=== PATIENT | male | born 1945 | race Caucasian/White ===

== ENCOUNTER 2016-09-05 14:05 | Day surgery (SDC) | payer MEDICARE ==
[2016-09-05] MEDS ORDERED: LOSA50TA PO (14:30)
[2016-09-05 14:32] VITALS: BP 149/85; PULSE 68; RESP 18; TEMP 98.3; O2SAT 97
--- NOTE | 2016-09-05 15:52 | PD.RAD ---
Radiology Post PICC Prog Note Pre Procedure Diagnosis: (1) Tonsil cancer Post Procedure Diagnosis: (1) Tonsil cancer Procedure: Right PICC line placement Procedure Date: Sep 05, 2016 Supervising Radiologist Nicolas Ledesma JR Proceduralist/Assist: Dilia Celestin RT(R)() Device Side: Right Arabic: 4 single lumen cm: 44 Catheter: Power PICC Plan of Activity Patient to Unit: ROPU Patient Condition: Good PICC line can be used immediately Jr. Baltazar,Nicolas Smith MD Sep 05, 2016 15:52
[2016-09-05 15:56] VITALS: BP 142/85; PULSE 67; RESP 20; O2SAT 95
[2016-09-05] MEDS ORDERED: SODIUM CHLORIDE 0.9% FLUSH 10 ML FLUSH IVF PRN ×2 (16:00)
--- NOTE | 2016-09-05 16:34 | RADRPT ---
EXAM DATE/TIME: 09/05/2016 15:36 [facility] COMPARISON: No previous studies available for comparison. INDICATIONS : Patient with left tonsilar cancer in need of PICC line placement. MEDICAL HISTORY : Acromegaly, Arthritis, HLD, HTN, Left oropharyngeal mass and left neck mass SURGICAL HISTORY : Colonoscopy, Left knee surgery, Transphenoidal pituitary surgery, Left tonsil biopsy ENCOUNTER: Initial ACUITY: 1 month PAIN SCORE: 0/10 FLUORO TIME: 0.55 minutes IMAGE SERIES: 1 ACCESS: Right basilic vein MEDICATION(S): 1.) 200 units Heparin IV DEVICE(S): 1.) 4 Monegasque single lumen 44 cm Xcela Power PICC PROCEDURE : 1. Ultrasound guidance for venous catheterization. 2. Fluoroscopic guidance. 3. Ultrasound & fluoroscopic guided central venous Power PICC line placement. The risks, benefits and alternatives to the procedure were explained and verbal and written consent w as obtained. The site was prepped in sterile fashion. Full sterile technique was used, including ca p, mask, sterile gloves and gown and a large sterile sheet. Hand hygiene and 2% chlorhexidine prep w as utilized per protocol for cutaneous antisepsis with appropriate dry time for site. The skin and s ubcutaneous tissues were infiltrated with local anesthetic solution. Under direct ultrasound guidance, a suitable vein was accessed and a measuring guidewire was introduc ed and positioned in the central venous system. The ultrasound images depicting access guidance were saved and stored to PACS for permanent record. A Power Injectable PICC line was cut to prescribed length and introduced, positioned with tip at the cavoatrial junction level. The line was flushed and secured per protocol. CONCLUSION: 1. Uncomplicated central venous Power PICC line placement. 2. The PICC line can be used immediately. Nicolas Ledesma Jr., MD on September 05, 2016 at 16:32 Board Certified Radiologist. This report was verified electronically.
[2016-09-06] MEDS ORDERED: SODIUM CHLORIDE 0.9% FLUSH 10 ML FLUSH IVF SCH (09:00)
== END 2016-09-05 16:05 | disposition home or self-care (01) ==
LOC: HROP 14:05 → HRIP 14:08 → HROP 16:05
PROVIDERS: ATTEND Internal Medicine Hematology & Oncology
DX: Z45.2 Encounter for adjustment and management of vascular access device (principal); C09.8 Malignant neoplasm of overlapping sites of tonsil; I10 Essential (primary) hypertension; E78.5 Hyperlipidemia, unspecified
CPT/HCPCS: 36569; 76937; 77001; C1751; J1642

== ENCOUNTER 2016-10-26 11:03 | Inpatient (IN) | payer MEDICARE, MEDICAID ==
[~2016-10-26] VITALS: Ht 181.6 cm; Wt 91.0 kg
[~2016-10-26 11:03] MED LIST: LOSA50TA PO
[2016-10-26 11:05] VITALS: BP 152/80; PULSE 74; RESP 24; TEMP 98.5; O2SAT 100
[2016-10-26] MEDS ORDERED: ONDANSETRON HCL 4 MG/2 ML VIAL IV PUSH ONE (11:30)
[2016-10-26] MEDS ORDERED: SODIUM CHLOR 0.9% 1000 ML INJ 1,000 ML IV ONE (11:30)
[2016-10-26] MEDS ORDERED: MORPHINE SULFATE 4 MG/ML INJ IV PUSH ONE (11:30)
--- NOTE | 2016-10-26 11:41 | PD ---
Physical Exam Narrative Patient was seen and examined with my assistant construction superintendent. Data Data Last Documented VS Vital Signs Date Time Temp Pulse Resp B/P Pulse Ox O2 Delivery O2 Flow Rate FiO2 10/26/16: 75 99 Room Air 10/26/16 11:05 98.5 24 152/80 Orders Electrocardiogram (10/26/16 11:29) Complete Blood Count With Diff (10/26/16 11:29) Comprehensive Metabolic Panel (10/26/16 11:29) Prothrombin Time / Inr (Pt) (10/26/16 11:29) Act Partial Throm Time (Ptt) (10/26/16 11:29) Lactic Acid Sepsis Protocol (10/26/16 11:29) Magnesium (Mg) (10/26/16 11:29) Ckmb (Isoenzyme) Profile (10/26/16 11:29) Troponin I (10/26/16 11:29) Urinalysis - C+S If Indicated (10/26/16 11:29) Blood Culture (10/26/16 11:29) Chest, Single Ap (10/26/16 11:29) Ecg Monitoring (10/26/16 11:29) Iv Access Insert/Monitor (10/26/16 11:29) Oxygen Administration (10/26/16 11:29) Sodium Chlor 0.9% 1000 Ml Inj (Ns 1000 M (10/26/16 11:30) Ondansetron Inj (Zofran Inj) (10/26/16 11:30) Morphine Inj (Morphine Inj) (10/26/16 11:30) MDM Supervised Visit with PENNIE: Yes Ant Schaefer MD October 26, 2016 11:41
--- NOTE | 2016-10-26 11:46 | PD ---
HPI Chief Complaint: General Weakness Time Seen by Provider: 11:25 Travel History International Travel<30 days: No Contact w/Intl Traveler<30days: No Traveled to known affect area: No History of Present Illness HPI Patient comes in complaining of generalized weakness since finishing radiation therapy 2 days ago. Patient has not been eating or drinking much. Patient states that he is vomiting. Denies any blood in vomit. Patient states his stool today was white. Denies any other change in his bowels. Patient reports his urine has been cloudy. States he just feels weak all over. Denies any fevers, chest pain, or abdominal pain. Patient reports he's been coughing. Denies any headaches. He reports his throat is been hurting him. Patient reports he finished chemotherapy week ago and has one more radiation treatment scheduled for tomorrow. The patient's oncologist is Dr. Arias and Dr. Brown is his radiology oncologist. Primary care doctor is Dr. Lockett. 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) High Cholesterol: Yes Chemotherapy: Yes Diminished Hearing: No Hypertension: Yes Tetanus Vaccination: < 5 Years Influenza Vaccination: No Social History Alcohol Use: No Tobacco Use: No Substance Use: No Allergies-Medications (Allergen,Severity, Reaction): Coded Allergies: Ibuprofen (Verified Allergy, Unknown, Anaphylaxis, 10/26/16) Reported Meds & Prescriptions Reported Meds & Active Scripts Active Reported Losartan (Losartan Potassium) 50 Mg Tab 50 Mg PO BID PRN Review of Systems Except as stated in HPI: all other systems reviewed are Neg Physical Exam Narrative GENERAL: Well-developed, well nourished, in no acute distress, and non-ill appearing. SKIN: Focused skin assessment warm and dry. HEAD: Atraumatic. Normocephalic. EYES: Pupils equal and round. EOMI. No scleral icterus. No injection or drainage. ENT: No nasal bleeding or discharge. Mucous membranes pink and moist. NECK: Trachea midline. No JVD. Supple. No nuclear rigidity. CARDIOVASCULAR: Regular rate and rhythm. No murmur appreciated. RESPIRATORY: No accessory muscle use. No respiratory distress. Clear to auscultation. Breath sounds equal bilaterally. GASTROINTESTINAL: Abdomen soft, non-tender, nondistended. Hepatic and splenic margins not palpable. Normal bowel sounds 4. No pulsatile mass. MUSCULOSKELETAL: No obvious deformities. No clubbing. No cyanosis. No edema. Full range of motion. NEUROLOGICAL: Awake and alert. No obvious cranial nerve deficits. Motor grossly within normal limits. Normal speech. PSYCHIATRIC: Appropriate mood and affect; insight and judgment normal. Data Data Last Documented VS Vital Signs Date Time Temp Pulse Resp B/P Pulse Ox O2 Delivery O2 Flow Rate FiO2 10/26/16 12:34 76 16 131/79 99 Room Air 10/26/16 11:05 98.5 Orders Electrocardiogram (10/26/16 11:29) Complete Blood Count With Diff (10/26/16 11:29) Comprehensive Metabolic Panel (10/26/16 11:29) Prothrombin Time / Inr (Pt) (10/26/16 11:29) Act Partial Throm Time (Ptt) (10/26/16 11:29) Lactic Acid Sepsis Protocol (10/26/16 11:29) Magnesium (Mg) (10/26/16 11:29) Ckmb (Isoenzyme) Profile (10/26/16 11:29) Troponin I (10/26/16 11:29) Urinalysis - C+S If Indicated (10/26/16 11:29) Blood Culture (10/26/16 11:29) Chest, Single Ap (10/26/16 11:29) Ecg Monitoring (10/26/16 11:29) Iv Access Insert/Monitor (10/26/16 11:29) Oxygen Administration (10/26/16 11:29) Sodium Chlor 0.9% 1000 Ml Inj (Ns 1000 M (10/26/16 11:30) Ondansetron Inj (Zofran Inj) (10/26/16 11:30) Morphine Inj (Morphine Inj) (10/26/16 11:30) Urine Culture (10/26/16 12:05) Admit Order (Ed Use Only) (10/26/16 14:10) Labs Laboratory Tests Test 10/26/16 10/26/16 10/26/16 11:25 11:35 12:05 Sodium Level 132 MEQ/L Potassium Level 4.0 MEQ/L Chloride Level 96 MEQ/L Carbon Dioxide Level 26.5 MEQ/L Anion Gap 10 MEQ/L Blood Urea Nitrogen 15 MG/DL Creatinine 0.94 MG/DL Estimat Glomerular Filtration 80 ML/MIN Rate Random Glucose 99 MG/DL Calcium Level 9.1 MG/DL Magnesium Level 1.7 MG/DL Total Bilirubin 0.7 MG/DL Aspartate Amino Transf 19 U/L (AST/SGOT) Alanine Aminotransferase 22 U/L (ALT/SGPT) Alkaline Phosphatase 78 U/L Total Creatine Kinase 32 U/L Troponin I LESS THAN 0.02 NG/ML Total Protein 7.2 GM/DL Albumin 3.7 GM/DL White Blood Count 5.2 TH/MM3 Red Blood Count 3.76 MIL/MM3 Hemoglobin 12.1 GM/DL Hematocrit 34.8 % Mean Corpuscular Volume 92.5 FL Mean Corpuscular Hemoglobin 32.3 PG Mean Corpuscular Hemoglobin 34.9 % Concent Red Cell Distribution Width 13.9 % Platelet Count 190 TH/MM3 Mean Platelet Volume 6.9 FL Neutrophils (%) (Auto) 78.3 % Lymphocytes (%) (Auto) 9.3 % Monocytes (%) (Auto) 11.6 % Eosinophils (%) (Auto) 0.4 % Basophils (%) (Auto) 0.4 % Neutrophils # (Auto) 4.1 TH/MM3 Lymphocytes # (Auto) 0.5 TH/MM3 Monocytes # (Auto) 0.6 TH/MM3 Eosinophils # (Auto) 0.0 TH/MM3 Basophils # (Auto) 0.0 TH/MM3 CBC Comment DIFF FINAL Differential Comment Prothrombin Time 10.7 SEC Prothromb Time International 1.0 RATIO Ratio Activated Partial 26.9 SEC Thromboplast Time Lactic Acid Level 1.5 mmol/L Urine Color YELLOW Urine Turbidity CLEAR Urine pH 6.0 Urine Specific [place] 1.007 Urine Protein NEG mg/dL Urine Glucose (UA) NEG mg/dL Urine Ketones 10 mg/dL Urine Occult Blood NEG Urine Nitrite NEG Urine Bilirubin NEG Urine Urobilinogen LESS THAN 2.0 MG/DL Urine Leukocyte Esterase NEG Urine RBC 1 /hpf Urine WBC 2 /hpf Urine Bacteria OCC /hpf Urine Mucus FEW /lpf Microscopic Urinalysis Comment CATH-CULTURE IND MDM Medical Decision Making Medical Screen Exam Complete: Yes Emergency Medical Condition: Yes Medical Record Reviewed: Yes Interpretation(s) EKG reviewed by Dr. Schaefer shows sinus rhythm with ventricular 65. No STEMI. Differential Diagnosis Dehydration, sepsis, pneumonia, UTI, arrhythmia, other Narrative Course Patient's records reviewed. Shows patient was noted to have a PEG tube placed for nourishment and made by Dr. Brown, however patient refused at that time secondary to cost. Dr. Schaefer discussed this with the patient today and is agreeable have PEG tube placed. 1330 patient reassess and reports is feeling much better after IV hydration. Discussed all findings and plan of care with patient was agreeable for admission. All questions were answered. CBC is pending currently. Patient remained stable throughout ER course. Physician Communication Physician Communication [address] Alcocer, who is agreeable to admit the patient. Diagnosis Primary Impression: Dysphagia Qualified Code: R13.10 - Dysphagia, unspecified type Additional Impressions: Malnutrition Dehydration Tonsil cancer Admitting Information Admitting Physician Requests: Observation Condition: Stable Monty Davis October 26, 2016 11:46
[2016-10-26 12:00] LABS: APTT (PATIENT) 26.9 SEC (24.3-30.1); PROTHROMBIN TIME - PATIENT 10.7 SEC (9.8-11.6)
[2016-10-26 12:13] LABS: ALT (GPT) 22 U/L (12-78); ANION GAP 10 MEQ/L (5-15); AST (GOT) 19 U/L (15-37); BICARBONATE 26.5 MEQ/L (21.0-32.0); BLOOD UREA NITROGEN 15 MG/DL (7-18); CHLORIDE 96 MEQ/L (98-107); GLOMERULAR FILTRATION RATE 80 ML/MIN (>89); MAGNESIUM 1.7 MG/DL (1.5-2.5); SODIUM (NA) 132 MEQ/L (136-145)
[2016-10-26 12:16] LABS: ALKALINE PHOSPHATASE 78 U/L (45-117); TOTAL BILIRUBIN ADULT 0.7 MG/DL (0.2-1.0)
--- NOTE | 2016-10-26 12:17 | RADRPT ---
EXAM DATE/TIME: 10/26/2016 11:36 [facility] COMPARISON: No previous studies available for comparison. INDICATIONS : Vomiting. MEDICAL HISTORY : Carcinoma, tonsillar. SURGICAL HISTORY : None. ENCOUNTER: Initial ACUITY: 1 day PAIN SCORE: 0/10 LOCATION: Bilateral chest FINDINGS: A single view of the chest demonstrates the lungs to be symmetrically aerated without evidence of mas s, infiltrate or effusion. The cardiomediastinal contours are unremarkable. Osseous structures are intact. CONCLUSION: No acute disease. Valentin Becfkord MD on October 26, 2016 at 12:16 Board Certified Radiologist. This report was verified electronically.
[2016-10-26 12:26] LABS: CREATINE KINASE 32 U/L (39-308)
[2016-10-26 12:34] VITALS: BP 131/79; PULSE 76; RESP 16; O2SAT 99
[2016-10-26 13:23] LABS: BACTERIA, URINE OCC /hpf; BLOOD, URINE NEG (NEG); GLUCOSE,URINE NEG (NEG); KETONE, URINE 10 mg/dL (NEG); MUCUS URINE FEW /lpf (OCC); NITRITE,URINE NEG (NEG); URINE COLOR YELLOW (YELLW/STRAW)
[2016-10-26 13:24] LABS: COMMENT (UR) CATH-CULTURE IND; CULTURE IF INDICATED CATH CULTURE IND
[2016-10-26 13:54] LABS: AUTOMATED NEUTROPHIL # 4.1 TH/MM3 (1.8-7.7); BASOPHIL % 0.4 % (0.0-2.0); EOSINOPHIL % 0.4 % (0.0-4.0); HEMATOCRIT 34.8 % (39.0-51.0); HEMO FLAGS DIFF FINAL; LYMPH % 9.3 % (9.0-44.0); LYMPHOCYTE # 0.5 TH/MM3 (1.0-4.8); MEAN CELL VOLUME 92.5 FL (80.0-100.0); MEAN CORPUSCULAR HEMOGLOBIN 32.3 PG (27.0-34.0); MEAN CORPUSCULAR HGB CONC 34.9 % (32.0-36.0); MONO % 11.6 % (0.0-8.0); NEUT % 78.3 % (16.0-70.0); PLATELET COUNT 190 TH/MM3 (150-450); RED BLOOD COUNT 3.76 MIL/MM3 (4.50-5.90); RED CELL DISTRIBUTION WIDTH 13.9 % (11.6-17.2); WHITE BLOOD COUNT 5.2 TH/MM3 (4.0-11.0)
--- NOTE | 2016-10-26 14:25 | HHI.HP ---
HPI Service [facility] Primary Care Physician Non-Staff Admission Diagnosis dysphagia, malnutrition, dehydration Diagnoses: Chief Complaint: painful swallowing, weak, (Marcy Molina) Travel History International Travel<30 Days: No Contact w/Intl Traveler <30 Da: No Traveled to Known Affected Are: No (Marcy Molina) History of Present Illness This a pleasant 71-year-old male recently diagnosed with left tonsillar squamous cell carcinoma, currently undergoing concurrent radiation and weekly cisplatin chemotherapy. Patient states that he finished the chemotherapy last week and he is due to finish his last radiation treatment tomorrow. His oncologist is Dr. Arias and radiation oncology is Dr. Brown. Patient presented to the emergency room with increasing weakness over the last 2 days. Indicates he is not able to eat or drink very much as he has painful swallowing. He's had some nausea and vomiting, no blood. Today he was sitting at the toilet and he fell like she passed out, he did not fall to the floor but was leaning against a wall. Denies any diarrhea, indicates his been constipated and his stool today was white in color and then he became loose. Urine has been concentrated. No fever, no chills. No chest pain, no shortness of breath. He's had a cough that is nonproductive. Review per oncology note shows that patient was offered a PEG tube however because of cost he declined. At this time, patient is agreeable to have PEG tube placed. He was prescribed Magic mouthwash but was unable to fill prescription because of cost. He was recently put on Diflucan. Laboratory workup was completed. BMP was unremarkable, mild hyponatremia, sodium 132. Lactic acid 1.5. CBC unremarkable. Urinalysis was positive for some bacteriuria, cultures pending. Chest x-ray did not reveal any acute finding. Patient now admitted for further evaluation and treatment. (Marcy Molina) Review of Systems Constitutional: COMPLAINS OF: Fatigue, Chills, Change in appetite, DENIES: Diaphoretic episodes, Fever, Weight gain, Weight loss, Dizziness, Night Sweats Endocrine: DENIES: Heat/cold intolerance, Polydipsia, Polyuria, Polyphagia Eyes: DENIES: Blurred vision, Diplopia, Eye inflammation, Eye pain, Vision loss , Photosensitivity, Double Vision Ears, nose, mouth, throat: COMPLAINS OF: Odynophagia, DENIES: Tinnitus, Hearing loss, Vertigo, Nasal discharge, Oral lesions, Throat pain, Hoarseness, Ear Pain, Running Nose, Epistaxis, Sinus Pain, Toothache Respiratory: COMPLAINS OF: Cough, DENIES: Apneas, Snoring, Wheezing, Hemoptysis, Sputum production, Shortness of breath Cardiovascular: DENIES: Chest pain, Palpitations, Syncope, Dyspnea on Exertion , PND, Lower Extremity Edema, Orthopnea, Claudication Gastrointestinal: COMPLAINS OF: Constipation, Nausea, Vomiting, DENIES: Abdominal pain, Black stools, Bloody stools, Diarrhea, Difficulty Swallowing, Anorexia Genitourinary: DENIES: Sexual dysfunction, Urinary frequency, Urinary incontinence, Urgency, Hematuria, Dysuria, Nocturia, Penile Discharge, Testicular Pain, Testicular Swelling Musculoskeletal: DENIES: Joint pain, Muscle aches, Stiffness, Joint Swelling, Back pain, Neck pain Integumentary: DENIES: Abnormal pigmentation, Nail changes, Pruritus, Rash Hematologic/lymphatic: DENIES: Bruising, Lymphadenopathy Immunologic/allergic: DENIES: Eczema, Urticaria Neurologic: DENIES: Abnormal gait, Headache, Localized weakness, Paresthesias, Seizures, Speech Problems, Tremor, Poor Balance Psychiatric: DENIES: Anxiety, Confusion, Mood changes, Depression, Hallucinations, Agitation, Suicidal Ideation, Homicidal Ideation, Delusions Other weak (Marcy Molina) Past Family Social History Past Medical History Acromegaly ADHD Arthritis Hyperlipidemia Hypertension Memory loss Left tonsillar squamous cell carcinoma stage III Left neck mass Past Surgical History Colonoscopy Left knee surgery Transsphenoidal pituitary surgery Left tonsil biopsy 2016 Reported Medications Reported Meds & Active Scripts Active Reported Losartan (Losartan Potassium) 50 Mg Tab 50 Mg PO BID PRN (Marcy Molina) Allergies: Coded Allergies: Ibuprofen (Verified Allergy, Unknown, Anaphylaxis, 10/26/16) Active Ordered Medications Inpatient Medications Morphine Sulfate (Morphine Inj) 2 mg ONCE ONCE IV PUSH Last administered on 11:30; Start 10/26/16 at 11:30; Stop 10/26/16 at 11:33; Status DC Ondansetron HCl (Zofran Inj) 4 mg ONCE ONCE IV PUSH Last administered on 11:30; Start 10/26/16 at 11:30; Stop 10/26/16 at 11:33; Status DC Sodium Chloride (NS 1000 ml Inj) 1,000 ml @ 999 mls/hr BOLUS ONCE IV Last administered on 10/26/16t 11:30; Start 10/26/16 at 11:30; Stop 10/26/16 at 12:30 ; Status DC Sodium Chloride (NS Flush) 2 ml BID IV FLUSH ; Start 10/26/16 at 21:00; Status UNV Family History Reviewed, noncontributory. Social History Lives with , has grown children. No substance abuse, no alcohol, no tobacco abuse. (Marcy Molina) Physical Exam Vital Signs Vital Signs Date Time Temp Pulse Resp B/P Pulse Ox O2 Delivery O2 Flow Rate FiO2 10/26/16 12:34 76 16 131/79 99 Room Air 10/26/16 12:34 99 Room Air 10/26/16 11:17 75 99 Room Air 10/26/16 11:05 98.5 74 24 152/80 100 Room Air Physical Exam GENERAL: This is a tall, well-nourished male. SKIN: No rashes, ecchymoses or lesions. Cool and dry. HEAD: Atraumatic. Normocephalic. No temporal or scalp tenderness. EYES: Pupils equal round and reactive. Extraocular motions intact. No scleral icterus. No injection or drainage. ENT: Nose without bleeding, purulent drainage or septal hematoma. Left posterior pharynx noted with erythema and thrush. Uvula midline. Airway patent. NECK: Trachea midline. No JVD or lymphadenopathy. Supple, nontender, no meningeal signs. Left neck Skin is noted dry and scaly. CARDIOVASCULAR: Regular rate and rhythm without murmurs, gallops, or rubs. RESPIRATORY: Clear to auscultation. Breath sounds equal bilaterally. No wheezes , rales, or rhonchi. GASTROINTESTINAL: Abdomen soft, non-tender, nondistended. No hepato-splenomegaly , or palpable masses. No guarding. MUSCULOSKELETAL: Extremities without clubbing, cyanosis, or edema. No joint tenderness, effusion, or edema noted. No calf tenderness. Negative Homans sign bilaterally. NEUROLOGICAL: Awake, alert oriented 3. No focal deficits. Laboratory Laboratory Tests Test 10/26/16 10/26/16 10/26/16 11:25 11:35 12:05 Sodium Level 132 Potassium Level 4.0 Chloride Level 96 Carbon Dioxide Level 26.5 Anion Gap 10 Blood Urea Nitrogen 15 Creatinine 0.94 Estimat Glomerular Filtration 80 Rate Random Glucose 99 Calcium Level 9.1 Magnesium Level 1.7 Total Bilirubin 0.7 Aspartate Amino Transf 19 (AST/SGOT) Alanine Aminotransferase 22 (ALT/SGPT) Alkaline Phosphatase 78 Total Creatine Kinase 32 Troponin I LESS THAN 0.02 Total Protein 7.2 Albumin 3.7 White Blood Count 5.2 Red Blood Count 3.76 Hemoglobin 12.1 Hematocrit 34.8 Mean Corpuscular Volume 92.5 Mean Corpuscular Hemoglobin 32.3 Mean Corpuscular Hemoglobin 34.9 Concent Red Cell Distribution Width 13.9 Platelet Count 190 Mean Platelet Volume 6.9 Neutrophils (%) (Auto) 78.3 Lymphocytes (%) (Auto) 9.3 Monocytes (%) (Auto) 11.6 Eosinophils (%) (Auto) 0.4 Basophils (%) (Auto) 0.4 Neutrophils # (Auto) 4.1 Lymphocytes # (Auto) 0.5 Monocytes # (Auto) 0.6 Eosinophils # (Auto) 0.0 Basophils # (Auto) 0.0 CBC Comment DIFF FINAL Differential Comment Prothrombin Time 10.7 Prothromb Time International 1.0 Ratio Activated Partial 26.9 Thromboplast Time Lactic Acid Level 1.5 Urine Color YELLOW Urine Turbidity CLEAR Urine pH 6.0 Urine Specific [place] 1.007 Urine Protein NEG Urine Glucose (UA) NEG Urine Ketones 10 Urine Occult Blood NEG Urine Nitrite NEG Urine Bilirubin NEG Urine Urobilinogen LESS THAN 2.0 Urine Leukocyte Esterase NEG Urine RBC 1 Urine WBC 2 Urine Bacteria OCC Urine Mucus FEW Microscopic Urinalysis Comment CATH-CULTURE IND Date/Time Procedure Status Source Growth 10/26/16 12:05 Urine Culture Received Urine Catheterized Urine Pending 10/26/16 11:45 Aerobic Blood Culture Received Blood Peripheral Pending 10/26/16 11:45 Anaerobic Blood Culture Received Blood Peripheral Pending (Marcy Molina) Result Diagram: 10/26/16 1135 10/26/16 1125 Imaging Last Impressions Chest X-Ray 10/26/16 1129 Signed Impressions: Service Date/Time: Wednesday, October 26, 2016 11:36 - CONCLUSION: No acute disease. Valentin Beckford MD (Marcy Molina) Assessment and Plan Problem List: (1) Tonsil cancer (2) Weakness (3) Acromegaly (4) Dysphagia (5) Dehydration (6) Malnutrition (7) HTN (hypertension) (8) Memory deficit Assessment and Plan Admit to Dr. 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 Admitted with dysphagia, has been very weak and not been able to take oral intake. Today, patient had a near syncopal episode. Denies any loss of consciousness. -Continue with IV fluids, normal saline at 100 hour -Magic mouthwash has been ordered Morphine as needed for pain Zofran as needed -Consult gastroenterology for PEG placement Thrush -Continue with Diflucan 100 mg by mouth daily -Magic mouthwash Left tonsillar squamous cell carcinoma stage III, status post chemotherapy with cisplatin and radiation. Due to have last radiation treatment tomorrow Consult Dr. Arias Hypertension, stable Continue home medications Memory deficit -Continue with Namenda Home medications reviewed, initiated as indicated SCDs for DVT prophylaxis Plan of care has been discussed with the patient, attending and registered nurse. Further management of the patient will be dependent on the hospital course This patient was seen by myself and Dr. 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
[2016-10-26] MEDS ORDERED: NALOXONE HCL 0.4 MG/ML AMP IV PRN (14:30)
[2016-10-26] MEDS ORDERED: ACETAMINOPHEN 325 MG TAB PO PRN (15:00)
[2016-10-26] MEDS: SODIUM CHLOR 0.9% 1000 ML INJ 1,000 ML IV SCH ×2 (15:00→23:14)
[2016-10-26] MEDS: MORPHINE SULFATE 4 MG/ML INJ IV PUSH PRN ×3 (15:50→23:15)
[2016-10-26] MEDS: ONDANSETRON HCL 4 MG/2 ML VIAL IVP PRN ×2 (17:00→23:15)
[2016-10-26] MEDS: SODIUM CHLORIDE 0.9% FLUSH 10 ML FLUSH IV FLUSH PRN (17:01)
[2016-10-26] MEDS ORDERED: LOSARTAN 50 MG TAB PO PRN (17:15)
[2016-10-26] MEDS ORDERED: MAGNESIUM HYDROXIDE SUSP 30 ML CUP PO PRN (17:15)
[2016-10-26 17:16] VITALS: BP 127/74; PULSE 74; RESP 18; TEMP 98.6; O2SAT 95
[2016-10-26] MEDS: NYSTAT/DIPHENHY/LIDO MOUTHWASH (Adult) 120ML SWISH-SWAL SCH ×2 (17:52→20:07)
[2016-10-26 19:07] VITALS: BP 165/74; PULSE 73; RESP 18; TEMP 98.6; O2SAT 100
[2016-10-26] MEDS: SODIUM CHLORIDE 0.9% FLUSH 10 ML FLUSH IV FLUSH SCH (19:58)
[2016-10-26] MEDS: FLUCONAZOLE 100 MG TAB PO SCH (20:07)
[2016-10-26 22:07] VITALS: PULSE 68
[2016-10-26 23:08] VITALS: BP 123/81; PULSE 61; RESP 18; TEMP 98.6; O2SAT 100
[2016-10-27] VITALS (7 sets, daily range): BP systolic 111–170; BP diastolic 58–82; PULSE 64–102; RESP 18; TEMP 97.4–100.1; O2SAT 97–100
[2016-10-27] MEDS: MORPHINE SULFATE 4 MG/ML INJ IV PUSH PRN ×6 (02:39→23:57)
[2016-10-27 05:56] LABS: AUTOMATED NEUTROPHIL # 1.4 TH/MM3 (1.8-7.7); BASOPHIL % 0.4 % (0.0-2.0); EOSINOPHIL % 1.2 % (0.0-4.0); HEMATOCRIT 29.1 % (39.0-51.0); HEMO FLAGS DIFF FINAL; LYMPH % 17.2 % (9.0-44.0); LYMPHOCYTE # 0.4 TH/MM3 (1.0-4.8); MEAN CELL VOLUME 93.7 FL (80.0-100.0); MEAN CORPUSCULAR HEMOGLOBIN 32.6 PG (27.0-34.0); MEAN CORPUSCULAR HGB CONC 34.8 % (32.0-36.0); MONO % 20.6 % (0.0-8.0); NEUT % 60.6 % (16.0-70.0); PLATELET COUNT 146 TH/MM3 (150-450); WHITE BLOOD COUNT 2.3 TH/MM3 (4.0-11.0)
[2016-10-27] MEDS: SODIUM CHLORIDE 0.9% FLUSH 10 ML FLUSH IV FLUSH PRN (06:18)
[2016-10-27 06:30] LABS: BICARBONATE 28.9 MEQ/L (21.0-32.0); POTASSIUM 4.6 MEQ/L (3.5-5.1)
--- NOTE | 2016-10-27 08:53 | PD.CONS ---
HPI History of Present Illness This is a 71 year old male who presented to the ER for evaluation of generalized weakness, inability to take po. 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 He finished his chemotherapy last Thursday and was scheduled for his last radiation treatment today. He has had difficulty swallowing. He has some odynophagia, but states that more than that, he just "cannot make it happen." He states he has frequent nausea and vomiting, with bilious or clear secretions. He has a burning pain when he swallows. This has progressively been getting worse with severe symptoms over the past two weeks. He states he is having a hard time getting up and around and feels as though he He has lost about 25-30 lbs since his treatment began. He also reports that he has frequent nausea and takes Zofran at home, but states this helps some, but does not completely alleviate his symptoms. He denies any abdominal pain. He has tried Magic Mouthwash and was recently started on Diflucan. PEG tube has been discussed, but he has been reluctant due to his medical bills. He would like to make sure this would be covered by his insurance before he agrees to anything. 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 Paternal grandfather had metastatic cancer (unknown primary), Maternal GF with stomach cancer, Paternal grandmother with unknown cancer. Social History No use of tobacco, etoh, illicit drug use. (Tyra Bailey) Review of Systems Constitutional: COMPLAINS OF: Fatigue, Weight loss, Change in appetite Respiratory: DENIES: Cough Cardiovascular: DENIES: Chest pain Gastrointestinal: COMPLAINS OF: Nausea, Vomiting, Difficulty Swallowing, Anorexia, Odynophagia, DENIES: Abdominal pain, Constipation, Diarrhea Musculoskeletal: COMPLAINS OF: Back pain Integumentary: DENIES: Rash Hematologic/lymphatic: DENIES: Bruising Neurologic: DENIES: Headache Psychiatric: DENIES: Confusion (BaileyTyra Rodriguez ELOINA) GI Exam Vitals I&O Vital Signs Date Time Temp Pulse Resp B/P Pulse Ox O2 Delivery O2 Flow Rate FiO2 10/27/16 08:24 98.8 76 18 122/71 99 10/27/16 07:25 97.4 64 18 115/58 97 10/27/16 06:34 16 10/27/16 04:36 98.5 70 18 111/61 100 10/26/16 23:08 98.6 61 18 123/81 100 10/26/16 22:07 68 10/26/16 19:07 98.6 73 18 165/74 100 10/26/16 17:16 98.6 74 18 127/74 95 10/26/16 12:34 76 16 131/79 99 Room Air 10/26/16 12:34 99 Room Air 10/26/16 11:17 75 99 Room Air 10/26/16 11:05 98.5 74 24 152/80 100 Room Air Imaging Last Impressions Chest X-Ray 10/26/16 1129 Signed Impressions: Service Date/Time: Wednesday, October 26, 2016 11:36 - CONCLUSION: No acute disease. Valentin Beckford MD Laboratory Test 10/26/16 10/26/16 10/26/16 10/27/16 11:25 11:35 12:05 05:08 Sodium Level 132 MEQ/L 140 MEQ/L Potassium Level 4.0 MEQ/L 4.6 MEQ/L Chloride Level 96 MEQ/L 104 MEQ/L Carbon Dioxide Level 26.5 MEQ/L 28.9 MEQ/L Anion Gap 10 MEQ/L 7 MEQ/L Blood Urea Nitrogen 15 MG/DL 10 MG/DL Creatinine 0.94 MG/DL 0.87 MG/DL Estimat Glomerular Filtration 80 ML/MIN 87 ML/MIN Rate Random Glucose 99 MG/DL 90 MG/DL Calcium Level 9.1 MG/DL 8.4 MG/DL Magnesium Level 1.7 MG/DL Total Bilirubin 0.7 MG/DL Aspartate Amino Transf 19 U/L (AST/SGOT) Alanine Aminotransferase 22 U/L (ALT/SGPT) Alkaline Phosphatase 78 U/L Total Creatine Kinase 32 U/L Troponin I LESS THAN 0.02 NG/ML Total Protein 7.2 GM/DL Albumin 3.7 GM/DL White Blood Count 5.2 TH/MM3 2.3 TH/MM3 Red Blood Count 3.76 MIL/MM3 3.10 MIL/MM3 Hemoglobin 12.1 GM/DL 10.1 GM/DL Hematocrit 34.8 % 29.1 % Mean Corpuscular Volume 92.5 FL 93.7 FL Mean Corpuscular Hemoglobin 32.3 PG 32.6 PG Mean Corpuscular Hemoglobin 34.9 % 34.8 % Concent Red Cell Distribution Width 13.9 % 14.0 % Platelet Count 190 TH/MM3 146 TH/MM3 Mean Platelet Volume 6.9 FL 6.3 FL Neutrophils (%) (Auto) 78.3 % 60.6 % Lymphocytes (%) (Auto) 9.3 % 17.2 % Monocytes (%) (Auto) 11.6 % 20.6 % Eosinophils (%) (Auto) 0.4 % 1.2 % Basophils (%) (Auto) 0.4 % 0.4 % Neutrophils # (Auto) 4.1 TH/MM3 1.4 TH/MM3 Lymphocytes # (Auto) 0.5 TH/MM3 0.4 TH/MM3 Monocytes # (Auto) 0.6 TH/MM3 0.5 TH/MM3 Eosinophils # (Auto) 0.0 TH/MM3 0.0 TH/MM3 Basophils # (Auto) 0.0 TH/MM3 0.0 TH/MM3 CBC Comment DIFF FINAL DIFF FINAL Differential Comment Prothrombin Time 10.7 SEC Prothromb Time International 1.0 RATIO Ratio Activated Partial 26.9 SEC Thromboplast Time Lactic Acid Level 1.5 mmol/L Urine Color YELLOW Urine Turbidity CLEAR Urine pH 6.0 Urine Specific [place] 1.007 Urine Protein NEG mg/dL Urine Glucose (UA) NEG mg/dL Urine Ketones 10 mg/dL Urine Occult Blood NEG Urine Nitrite NEG Urine Bilirubin NEG Urine Urobilinogen LESS THAN 2.0 MG/DL Urine Leukocyte Esterase NEG Urine RBC 1 /hpf Urine WBC 2 /hpf Urine Bacteria OCC /hpf Urine Mucus FEW /lpf Microscopic Urinalysis Comment CATH-CULTURE IND Date/Time Procedure Status Source Growth 10/26/16 12:05 Urine Culture Received Urine Catheterized Urine Pending 10/26/16 11:45 Aerobic Blood Culture Received Blood Peripheral Pending 10/26/16 11:45 Anaerobic Blood Culture Received Blood Peripheral Pending Physical Examination HEENT: Normocephalic; atraumatic; no jaundice. CHEST: CTA CARDIAC: RRR ABDOMEN: Soft, nondistended, nontender; no hepatosplenomegaly; bowel sounds are present in all four quadrants. EXTREMITIES: No clubbing, cyanosis, or edema. SKIN: Normal; no rash; no jaundice. PHARMACY ANCILLARY: No focal deficits; alert and oriented times three. (Tyra Bailey) Assessment and Plan Plan ASSESSMENT: - Dysphagia, Odynophagia, Weight loss, Inability to tolerate po. 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 S/P concurrent radiation and weekly cisplatin chemotherapy. He finished his chemotherapy last Thursday and was scheduled for his last radiation treatment today. He has been having dysphagia, odynophagia, nausea/vomiting, but this suddenly became worse about 2 weeks ago and he is now having severe generalized weakness and has lost 25-30 lbs. He is now agreeable for PEG as long as this is covered by his insurance. Magic Mouthwash, Diflucan. - Left Tonsillar Squamous Cell Carcinoma. Followed by Dr. Arias. S/P concurrent radiation and weekly cisplatin chemotherapy. He finished his chemotherapy last Thursday and was scheduled for his last radiation treatment today. - ADHD, Arthritis, Hyperlipidemia, Hypertension. per primary PLAN: - Plan for EGD with PEG tube placement today - Obtain consents - NPO - [employer] Machine Operator evaluation for TF bolus recommendations - Cont. Diflucan - Cont. Magic Mouthwash - Add Protonix - Further recommendations to follow based on results of above - Pt seen and examined by Dr. Diehl and myself and this note is written on his behalf (Tyra Bailey) Physician Comments Patient seen and examined Agree with above Continue with current supportive care Monitor labs We will proceed with PEG placement next (Osvaldo Diehl MD) Tyra Bailey October 27, 2016 08:53 Osvaldo Diehl MD October 27, 2016 11:46
[2016-10-27] MEDS ORDERED: FLUCONAZOLE SUSP 10 MG/ML 35 ML BTL PO SCH (09:00)
--- NOTE | 2016-10-27 09:37 | HHI.PR ---
Subjective Subjective Remarks painful swallowing, tolerating fluids ok pain a 6 no cp no sob less weak, has been ambulating voiding okay wants to eat needs to stay NPO for poss peg. Pt. concerned about cost and whether insurance will cover. Reassurance given Review of Systems Constitutional Constitutional Remarks 12 point ROS completed, negative except as noted above Vitals/Results Vital Signs Vital Signs Date Time Temp Pulse Resp B/P Pulse Ox O2 Delivery O2 Flow Rate FiO2 10/27/16 08:24 98.8 76 18 122/71 99 10/27/16 07:25 97.4 64 18 115/58 97 10/27/16 06:34 16 10/27/16 04:36 98.5 70 18 111/61 100 10/26/16 23:08 98.6 61 18 123/81 100 10/26/16 22:07 68 10/26/16 19:07 98.6 73 18 165/74 100 10/26/16 17:16 98.6 74 18 127/74 95 10/26/16 12:34 76 16 131/79 99 Room Air 10/26/16 12:34 99 Room Air 10/26/16 11:17 75 99 Room Air 10/26/16 11:05 98.5 74 24 152/80 100 Room Air CBC/BMP: 10/27/16 0508 10/27/16 0508 Lab Results Laboratory Tests Test 10/26/16 10/26/16 10/26/16 10/27/16 11:25 11:35 12:05 05:08 Sodium Level 132 MEQ/L 140 MEQ/L Potassium Level 4.0 MEQ/L 4.6 MEQ/L Chloride Level 96 MEQ/L 104 MEQ/L Carbon Dioxide Level 26.5 MEQ/L 28.9 MEQ/L Anion Gap 10 MEQ/L 7 MEQ/L Blood Urea Nitrogen 15 MG/DL 10 MG/DL Creatinine 0.94 MG/DL 0.87 MG/DL Estimat Glomerular Filtration 80 ML/MIN 87 ML/MIN Rate Random Glucose 99 MG/DL 90 MG/DL Calcium Level 9.1 MG/DL 8.4 MG/DL Magnesium Level 1.7 MG/DL Total Bilirubin 0.7 MG/DL Aspartate Amino Transf 19 U/L (AST/SGOT) Alanine Aminotransferase 22 U/L (ALT/SGPT) Alkaline Phosphatase 78 U/L Total Creatine Kinase 32 U/L Troponin I LESS THAN 0.02 NG/ML Total Protein 7.2 GM/DL Albumin 3.7 GM/DL White Blood Count 5.2 TH/MM3 2.3 TH/MM3 Red Blood Count 3.76 MIL/MM3 3.10 MIL/MM3 Hemoglobin 12.1 GM/DL 10.1 GM/DL Hematocrit 34.8 % 29.1 % Mean Corpuscular Volume 92.5 FL 93.7 FL Mean Corpuscular Hemoglobin 32.3 PG 32.6 PG Mean Corpuscular Hemoglobin 34.9 % 34.8 % Concent Red Cell Distribution Width 13.9 % 14.0 % Platelet Count 190 TH/MM3 146 TH/MM3 Mean Platelet Volume 6.9 FL 6.3 FL Neutrophils (%) (Auto) 78.3 % 60.6 % Lymphocytes (%) (Auto) 9.3 % 17.2 % Monocytes (%) (Auto) 11.6 % 20.6 % Eosinophils (%) (Auto) 0.4 % 1.2 % Basophils (%) (Auto) 0.4 % 0.4 % Neutrophils # (Auto) 4.1 TH/MM3 1.4 TH/MM3 Lymphocytes # (Auto) 0.5 TH/MM3 0.4 TH/MM3 Monocytes # (Auto) 0.6 TH/MM3 0.5 TH/MM3 Eosinophils # (Auto) 0.0 TH/MM3 0.0 TH/MM3 Basophils # (Auto) 0.0 TH/MM3 0.0 TH/MM3 CBC Comment DIFF FINAL DIFF FINAL Differential Comment Prothrombin Time 10.7 SEC Prothromb Time International 1.0 RATIO Ratio Activated Partial 26.9 SEC Thromboplast Time Lactic Acid Level 1.5 mmol/L Urine Color YELLOW Urine Turbidity CLEAR Urine pH 6.0 Urine Specific [place] 1.007 Urine Protein NEG mg/dL Urine Glucose (UA) NEG mg/dL Urine Ketones 10 mg/dL Urine Occult Blood NEG Urine Nitrite NEG Urine Bilirubin NEG Urine Urobilinogen LESS THAN 2.0 MG/DL Urine Leukocyte Esterase NEG Urine RBC 1 /hpf Urine WBC 2 /hpf Urine Bacteria OCC /hpf Urine Mucus FEW /lpf Microscopic Urinalysis Comment CATH-CULTURE IND Microbiology Microbiology 10/26/16 Aerobic Blood Culture, Received Pending 10/26/16 Anaerobic Blood Culture, Received Pending 10/26/16 Aerobic Blood Culture, Received Pending 10/26/16 Anaerobic Blood Culture, Received Pending 10/26/16 Urine Culture, Received Pending Physical Exam General General Appearance: Well Developed, Well Nourished, No Acute Distress, Comfortable Eyes Eye Exam: Pupils Equal, Pupils Reactive Ears & Nose Ears & Nose Exam: Nasal Mucosa [place] Throat Throat Exam: Oral Mucosa [place] & Moist Throat Remarks thrush, erythema left post. pharynx Neck Neck Exam: Neck Supple, Trachea Midline Pulmonary Resp Exam: Breath Sounds Equal, No Distress Cardiology CV Exam: Regular, Good Perfusion Gastrointestinal/Abdomen GI Exam: Soft, Non-Tender, Bowel Sounds Present, Non-Distended Musculoskeletal MS Exam: Joints Intact Integumentary Skin Exam: Warm, Dry Extremeties Extremities Exam: Pedal Pulses Palpable Neurologic Neuro Exam: Alert, Awake, Oriented, Speech Clear, Moving All Extremities, No Focal Deficits Psychiatric Psych Exam: Appropriate Responses VTE Prophylaxis VTE Prophylaxis Device: SCDs PUD Prophylasis PUD Prophylaxis: Protonix Assessment/Plan Problem List: (1) Weakness (2) Dysphagia (3) Acromegaly (4) Tonsil cancer (5) Dehydration (6) Malnutrition (7) HTN (hypertension) (8) Memory deficit Assessment/Plan 71-year-old male with 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 Admitted with dysphagia, has been very weak and not been able to take oral intake. Today, patient had a near syncopal episode. Denies any loss of consciousness. feels better, no dizziness, ambulating -Continue with IV fluids, normal saline at 100 hour -Magic mouthwash Morphine as needed for pain Zofran as needed -Consult gastroenterology for PEG placement, input appreciated. Will be scheduled for today -dietary consult for bolus feeding -Keep NPO Leukopenia -monitor CBC Thrush, poss. 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 Due to have last radiation treatment tomorrow Consult Dr. Arias, pending Hypertension, stable Continue home medications Memory deficit -Continue with Namenda SCDs for DVT prophylaxis Labs in am going for peg today poss.dc tomorrow if he can tolerate tube feedings D/W RN D/W Dr. Rod D/W pt. This patient was seen by myself and Dr. Alcocer, this note is written on his behalf Problem Qualifiers (1) Dysphagia: Qualified Code: R13.10 - Dysphagia, unspecified type (2) HTN (hypertension): Qualified Code: I10 - Essential hypertension Marcy Molina October 27, 2016 09:37
[2016-10-27] MEDS: MEMANTINE HCL 5 MG TAB PO SCH (10:06)
[2016-10-27] MEDS: SODIUM CHLORIDE 0.9% FLUSH 10 ML FLUSH IV FLUSH SCH ×2 (10:06→20:45)
[2016-10-27] MEDS: LOSARTAN 50 MG TAB PO SCH ×2 (10:06→20:46)
[2016-10-27] MEDS: PANTOPRAZOLE SODIUM 40 MG VIAL IV PUSH SCH ×2 (10:07→20:46)
[2016-10-27] MEDS: NYSTAT/DIPHENHY/LIDO MOUTHWASH (Adult) 120ML SWISH-SWAL SCH ×4 (10:07→20:46)
[2016-10-27] MEDS: SODIUM CHLOR 0.9% 1000 ML INJ 1,000 ML IV SCH ×2 (11:00→20:44)
[2016-10-27] MEDS ORDERED: PROPOFOL 200 MG/20 ML AMP IV ONE (11:31)
--- NOTE | 2016-10-27 11:48 | PD.PROCEDR ---
GI Procedure REFERRING PHYSICIAN Dr. Alcocer PROCEDURE PERFORMED EGD with PEG placement INDICATION FOR PROCEDURE Dysphagia with history of tonsillar cancer PROCEDURE: The procedure, risks and benefits were discussed with Mr. Reyna and informed consent was obtained. Anesthesia sedated him with Diprivan. He was placed in the left lateral decubitus position. EGD: The Pentax videoscope was introduced through the oropharynx and advanced to the second portion of the duodenum under direct visualization. Retroflexion was performed in the stomach. FINDINGS: The esophagus this was normal The stomach there was a large hiatal hernia otherwise gastric mucosa was normal Following the evaluation of the stomach and the duodenum the stomach was insufflated with air and the area of PEG placement was identified through indentation and transillumination the area was prepped and draped in usual fashion 5 cc of lidocaine were injected locally a small incision was made then an Angiocath was passed into the stomach through which a guidewire was passed this was retrieved with the scope into that a PEG tube was attached and pulled into place and thereafter secured in usual fashion The patient tolerated procedure well and there are no immediate complications The duodenum this was normal ESTIMATED BLOOD LOSS: None SPECIMENS REMOVED: None COMPLICATIONS: None IMPRESSION: Large hiatal hernia Otherwise normal EGD Successful PEG placement PLAN: 1. May use PEG tube for medications today 2. May start feeding tomorrow 3. May obtain nutritional consult for tube feeding 4. Flush tube with 50 cc of water every 4-6 hours 5. Always flush tube after feedings 6. Apply abdominal binder as necessary 7. Clamp G-tube after use and flush. Osvaldo Diehl MD October 27, 2016 11:48
[2016-10-27] MEDS ORDERED: *morphine SULFATE 8 MG/ML PERIprocedure ONLY ONE (11:54)
--- NOTE | 2016-10-27 13:01 | EKG ---
Date Performed: 10/26/2016 Time Performed: 12:30:51 PTAGE: 71 years EKG: Sinus rhythm NORMAL ECG NO PREVIOUS TRACING DOCTOR: Kee Max Interpretating Date/Time 10/27/2016 13:00:21
[2016-10-27] MEDS: ONDANSETRON HCL 4 MG/2 ML VIAL IVP PRN (15:55)
[2016-10-27] MEDS ORDERED: LORazepam 2 MG/ML VIAL IV ONE (17:45)
[2016-10-27] MEDS: FLUCONAZOLE 100 MG TAB PO SCH (20:46)
[2016-10-28] MEDS: SODIUM CHLOR 0.9% 1000 ML INJ 1,000 ML IV SCH ×2 (02:58→18:21)
[2016-10-28] MEDS: MORPHINE SULFATE 4 MG/ML INJ IV PUSH PRN ×5 (02:59→21:04)
[2016-10-28 04:00] VITALS: BP 126/75; PULSE 88; RESP 16; TEMP 98.9; O2SAT 98
--- NOTE | 2016-10-28 07:26 | MB ---
cc: CHANDA ARIAS M.D. DATE OF CONSULTATION 10/27/2016 REASON FOR CONSULTATION Consult requested by hospitalist for evaluation of head and neck cancer. HISTORY OF PRESENT ILLNESS Jonah is a pleasant 71-year-old male. He is admitted to the hospital for syncopal episode. He is unable to swallow due to persistent nausea. He has been on chemotherapy with radiation for head and neck cancer. The patient has been advised to have a PEG tube in the past which he has declined due to financial reasons. I have been asked to see the patient for further evaluation. REVIEW OF SYSTEMS The patient has been complaining of difficulty swallowing and persistent nausea. He had upper endoscopy and PEG tube placement by Dr. Diehl today. The rest of the review of systems is negative. PAST MEDICAL HISTORY 1. Acromegaly. 2. ADHD. 3. Arthritis. 4. Hypercholesterolemia. 5. Hypertension. 6. Memory loss. 7. Left tonsillar cancer with metastasis to the left neck. PAST SURGICAL HISTORY 1. Colonoscopy. 2. Left knee surgery. 3. Transsphenoidal pituitary surgery for acromegaly. 4. Left tonsillar biopsy. ALLERGIES IBUPROFEN. MEDICATIONS Please see EMR. FAMILY HISTORY Noncontributory. SOCIAL HISTORY The patient does not smoke cigarettes, does not drink alcohol. PHYSICAL EXAMINATION GENERAL: He is a well-developed, well-nourished white male in no apparent distress. VITAL SIGNS: Temperature 99.4, heart rate is 102, blood pressure 121/64. HEENT: PERRLA, EOMI, anicteric. No oral lesions are noted. NECK: No lymphadenopathy noted. LUNGS: Clear. No wheezing, rhonchi or rales. HEART: Regular rate and rhythm. ABDOMEN: Soft, nontender. PEG tube noted. EXTREMITIES: No pedal edema. NEUROLOGY: Awake, alert, oriented x 3. SKIN: No significant lesions are noted. ASSESSMENT 1. Syncopal episode due to poor oral intake from radiation pharyngitis and esophagitis. 2. Left tonsillar cancer, currently on radiation and chemotherapy, cis-platinol. 3. Poor nutrition, due to unable to swallow. 4. Intractable nausea, most likely due to the cis-platinol chemotherapy. PLAN I have reviewed his available records and I have discussed with the patient regarding the syncopal episode. He had developed radiation esophagitis and pharyngitis. It is difficult for him to swallow. On top of that, he has intractable nausea which is keeping him away from food. He now has a PEG tube which he has declined in the past due to financial reasons. Dietitian consult will be obtained to assist the patient in the care of the PEG tube and tube feedings. The patient had received his last radiation therapy today. His last chemotherapy was a week ago Thursday. He still has nausea which I believe is due to the chemotherapy. We will give him antiemetics. Further recommendations based on his hospital stay. Thank you for asking my opinion. Mirna Arias MD /SSB /9:51 PM /7:18 AM MTDD
[2016-10-28 08:00] VITALS: BP 130/76; PULSE 81; RESP 20; TEMP 98.1; O2SAT 98
[2016-10-28] MEDS: LOSARTAN 50 MG TAB PO SCH ×2 (08:38→20:42)
[2016-10-28] MEDS: PANTOPRAZOLE SODIUM 40 MG VIAL IV PUSH SCH ×2 (08:39→20:39)
[2016-10-28 09:17] LABS: HEMATOCRIT 31.8 % (39.0-51.0); MEAN CELL VOLUME 93.3 FL (80.0-100.0); MEAN CORPUSCULAR HEMOGLOBIN 32.5 PG (27.0-34.0); MEAN CORPUSCULAR HGB CONC 34.8 % (32.0-36.0); PLATELET COUNT 164 TH/MM3 (150-450); RED BLOOD COUNT 3.41 MIL/MM3 (4.50-5.90); RED CELL DISTRIBUTION WIDTH 14.4 % (11.6-17.2); REVIEW FLAG FINAL; WHITE BLOOD COUNT 3.3 TH/MM3 (4.0-11.0)
[2016-10-28] MEDS: MEMANTINE HCL 5 MG TAB PO SCH (11:17)
[2016-10-28] MEDS: NYSTAT/DIPHENHY/LIDO MOUTHWASH (Adult) 120ML SWISH-SWAL SCH ×4 (11:17→19:32)
[2016-10-28] MEDS: SODIUM CHLORIDE 0.9% FLUSH 10 ML FLUSH IV FLUSH SCH ×2 (11:17→20:39)
[2016-10-28 12:00] VITALS: BP 117/73; PULSE 83; RESP 20; TEMP 98; O2SAT 97
--- NOTE | 2016-10-28 12:12 | PD.ONC.PN ---
Subjective Subjective Remarks Tmax 100.1 overnight. Patient states nausea improved. still with pharyngitis. not able to swallow pills yet. Objective Data Date Time Temp Pulse Resp B/P Pulse Ox O2 Delivery O2 Flow Rate FiO2 10/28/16 08:45 18 10/28/16 08:00 98.1 81 20 130/76 98 10/28/16 04:00 98.9 88 16 126/75 98 10/27/16 23:00 100.1 95 18 140/82 100 10/27/16 20:30 99.4 102 18 121/64 98 10/27/16 19:30 102 10/27/16 15:22 98.6 93 18 170/78 99 10/27/16 12:09 98.3 66 14 112/70 100 Nasal Cannula 2 10/28/16 10/28/16 10/28/16 07:00 15:00 23:00 Intake Total 240 ml Balance 240 ml Result Diagram: 10/28/16 0842 10/27/16 0508 Laboratory Results Laboratory Tests Test 10/28/16 08:42 White Blood Count 3.3 TH/MM3 Red Blood Count 3.41 MIL/MM3 Hemoglobin 11.1 GM/DL Hematocrit 31.8 % Mean Corpuscular Volume 93.3 FL Mean Corpuscular Hemoglobin 32.5 PG Mean Corpuscular Hemoglobin 34.8 % Concent Red Cell Distribution Width 14.4 % Platelet Count 164 TH/MM3 Mean Platelet Volume 6.4 FL Culture Results Microbiology Date/Time Procedure Status Source Growth 10/26/16 11:30 Aerobic Blood Culture - Preliminary Resulted Blood Peripheral NO GROWTH IN 2 DAYS 10/26/16 11:30 Anaerobic Blood Culture - Preliminary Resulted Blood Peripheral NO GROWTH IN 2 DAYS 10/26/16 11:45 Aerobic Blood Culture - Preliminary Resulted Blood Peripheral NO GROWTH IN 2 DAYS 10/26/16 11:45 Anaerobic Blood Culture - Preliminary Resulted Blood Peripheral NO GROWTH IN 2 DAYS 10/26/16 12:05 Urine Culture - Final Complete Urine Catheterized Urine Administered Medications Medications (Trade) Dose Ordered Sig/Anastacio Route PRN Reason Start Time Stop Time Status Last Admin Dose Admin Sodium Chloride (NS 1000 ml Inj) 1,000 ml @ 100 mls/hr Q10H IV 10/26/16 15:00 10/28/16 02:58 Sodium Chloride (NS Flush) 2 ml UNSCH PRN IV FLUSH FLUSH AFTER USING IV ACCESS 10/26/16 14:30 10/27/16 06:18 Sodium Chloride (NS Flush) 2 ml BID IV FLUSH 10/26/16 21:00 10/28/16 11:17 Ondansetron HCl (Zofran Inj) 4 mg Q6H PRN IVP NAUSEA OR VOMITING 10/26/16 15:00 10/27/16 15:55 Morphine Sulfate (Morphine Inj) 4 mg Q3H PRN IV PUSH PAIN SCALE 6 TO 10 10/26/16 14:30 10/28/16 11:41 Multi-Ingredient Mouthwash/Gargle (Magic Mouthwash Adult Liq) 10 ml QID SWISH-SWAL 10/26/16 18:00 10/28/16 11:17 Memantine (Namenda) 5 mg DAILY PO 10/27/16 09:00 10/28/16 11:17 Losartan Potassium (Cozaar) 50 mg BID PO 10/27/16 09:00 10/28/16 08:38 Fluconazole (Diflucan) 100 mg Q24H PO 10/26/16 21:00 10/27/16 20:46 Pantoprazole Sodium (Protonix Inj) 40 mg Q12HR IV PUSH 10/27/16 09:30 10/28/16 08:39 Objective Remarks GENERAL: Middle aged male, sitting up in bed in nad SKIN: Warm and dry. HEAD: Normocephalic. MOUTH: pharynx injected with ulcerations EYES: No injection or drainage. NECK: Supple, trachea midline. CARDIOVASCULAR: Regular rate and rhythm RESPIRATORY: Breath sounds equal bilaterally. No accessory muscle use. GASTROINTESTINAL: Abdomen soft, non-tender, nondistended. PEG tube clamped MUSCULOSKELETAL: No cyanosis BACK: Nontender without obvious deformity. No CVA tenderness. Assessment/Plan Problem List: (1) Malnutrition Status: Acute Plan: 10/28: start tube feeds --due to radiation pharyngitis and esophagitis --s/p PEG tube placement --dot compliance coordinator consulted: recommends: Jevity 1.5 7 cans/day bolus feedings, schedule below. 360 mls (1+1/2 cans)at 8am, 11am, 5pm, 8pm 240 mls (1 can) at 2pm Water flushes per MD. As po intake improves, pt can bolus 6 cans/day 360 mls (1+1/2 cans) at 8am and 8pm, 240 mls (1 can) at 11am, 2pm, 5pm (2) Nausea & vomiting Status: Acute Plan: 10/28: improved. will start tube feeds. d/w GI --likely due to cisplatin chemotherapy --on anti-emetic therapy (3) Dehydration Status: Acute Plan: --on NS @ 100cc/hr (4) Tonsil cancer Status: Chronic Plan: 10/28: continue PRN morphine for pain, may start Oramorph for long acting pain relief once patient can swallow pills. --received last radiation therapy 10/27 --last chemotherapy was a week ago Thursday. Assessment 71y/o male with head and neck cancer. h/o Acromegaly. ADHD. Arthritis. Hypercholesterolemia. Hypertension. Memory loss. Left tonsillar cancer with metastasis to the left neck Attending Statement nausea better c/o throat pain and anxiety Ativan for anxiety start Tube feedings D/W RN The exam, history, and the medical decision-making described in the above note were completed with the assistance of the mid-level provider. I reviewed and agree with the findings presented. I attest that I had a [id number] encounter with the patient on the same day, and personally performed and documented my assessment and findings in the medical record. Gail Light October 28, 2016 12:12 Farideh Arias MD October 28, 2016 23:26
[2016-10-28] MEDS ORDERED: PHENOL 1.4% SOLN 180 ML BTL OROPHARYNG PRN (13:00)
--- NOTE | 2016-10-28 13:22 | HHI.GIFU ---
Subjective Remarks Pt OOB to do hygeine. He says he was having alot of PEG site pain yesterday but feels okaytoday, very minimal nausea. (Alanis Crespo) Objective Vitals I&O Vital Signs Date Time Temp Pulse Resp B/P Pulse Ox O2 Delivery O2 Flow Rate FiO2 10/28/16 12:00 98.0 83 20 117/73 97 10/28/16 11:50 16 10/28/16 08:00 98.1 81 20 130/76 98 10/28/16 04:00 98.9 88 16 126/75 98 10/27/16 23:00 100.1 95 18 140/82 100 10/27/16 20:30 99.4 102 18 121/64 98 10/27/16 19:30 102 10/27/16 15:22 98.6 93 18 170/78 99 I/O 10/27/16 10/27/16 10/27/16 10/28/16 10/28/16 10/28/16 06:59 14:59 22:59 06:59 14:59 22:59 Intake Total 200 ml 240 ml Balance 200 ml 240 ml Intake Oral 240 ml Other 200 ml # Voids 1 3 Laboratory Laboratory Tests Test 10/28/16 08:42 White Blood Count 3.3 Red Blood Count 3.41 Hemoglobin 11.1 Hematocrit 31.8 Mean Corpuscular Volume 93.3 Mean Corpuscular Hemoglobin 32.5 Mean Corpuscular Hemoglobin 34.8 Concent Red Cell Distribution Width 14.4 Platelet Count 164 Mean Platelet Volume 6.4 Date/Time Procedure Status Source Growth 10/26/16 12:05 Urine Culture - Final Complete Urine Catheterized Urine 10/26/16 11:45 Aerobic Blood Culture - Preliminary Resulted Blood Peripheral NO GROWTH IN 2 DAYS 10/26/16 11:45 Anaerobic Blood Culture - Preliminary Resulted Blood Peripheral NO GROWTH IN 2 DAYS Imaging Last Impressions Chest X-Ray 10/26/16 1129 Signed Impressions: Service Date/Time: Wednesday, October 26, 2016 11:36 - CONCLUSION: No acute disease. Valentin Beckford MD Physical Exam HEENT: EOMI; normocephalic; atraumatic; no jaundice. CHEST: CTA CARDIAC: RRR ABDOMEN: Soft, nondistended, nontender; no hepatosplenomegaly; bowel sounds are present in all four quadrants. PEG dressing clean, site free of redness, drainage EXTREMITIES: No clubbing, cyanosis, or edema. SKIN: Normal; no rash; no jaundice. MANAGER PIPELINE: No focal deficits; alert and oriented times three. (Alanis Crespo) Assessment and Plan Plan ASSESSMENT: - Dysphagia, Odynophagia, Weight loss, Inability to tolerate po. s/p PEG placement/EGD --> large hiatal hernia and otherwise normal. 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 S/P concurrent radiation and weekly cisplatin chemotherapy. He finished his chemotherapy last Thursday and was scheduled for his last radiation treatment today. He has been having dysphagia, odynophagia, nausea/vomiting, but this suddenly became worse about 2 weeks ago and he is now having severe generalized weakness and has lost 25-30 lbs. He is now agreeable for PEG as long as this is covered by his insurance. Magic Mouthwash, Diflucan. Nutrition consulted: start TF on a pump while here at 30 mls/hr, increase as tolerated by 10 ml q hr until goal rate of 65 ml/hr is reached. Jevity 1.5 7 cans/day bolus feedings, schedule below. 360 mls (1+1/2 cans)at 8am, 11am, 5pm, 8pm 240 mls (1 can) at 2pm Water flushes per MD. As po intake improves, pt can bolus 6 cans/day 360 mls (1+1/2 cans) at 8am and 8pm, 240 mls (1 can) at 11am, 2pm, 5pm - Left Tonsillar Squamous Cell Carcinoma. Followed by Dr. Arias. S/P concurrent radiation and weekly cisplatin chemotherapy. He finished his chemotherapy last Thursday and was scheduled for his last radiation treatment today. - ADHD, Arthritis, Hyperlipidemia, Hypertension. per primary PLAN: - start TF 30ml/hr, increase by 10ml q hr to goal rate 65ml/hr - Cont. Diflucan - Cont. Magic Mouthwash - continue protonix Pt seen and examined by Dr. Diehl and myself and this note is written on his behalf (Alanis Crespo) Physician Comments Patient seen and examined Agree with above Continue with current supportive care Monitor labs Advanced to feeding to goal We will sign off (Osvaldo Diehl MD) Alanis Crespo October 28, 2016 13:22 Osvaldo Diehl MD October 28, 2016 17:47
--- NOTE | 2016-10-28 13:58 | HHI.PR ---
Subjective Interval History awake, alert and oriented s/p PEG tube placement yesterday pain at PEG site improved today complaining of throat pain, difficulty swallowing no fever no family at bed side Vitals/Results Intake & Output 10/27/16 10/27/16 10/28/16 15:00 23:00 07:00 Intake Total 200 ml 240 ml Balance 200 ml 240 ml Intake Oral 240 ml Other 200 ml # Voids 1 1 2 Vital Signs Vital Signs Date Time Temp Pulse Resp B/P Pulse Ox O2 Delivery O2 Flow Rate FiO2 10/28/16 12:00 98.0 83 20 117/73 97 10/28/16 11:50 16 10/28/16 08:00 98.1 81 20 130/76 98 10/28/16 04:00 98.9 88 16 126/75 98 10/27/16 23:00 100.1 95 18 140/82 100 10/27/16 20:30 99.4 102 18 121/64 98 10/27/16 19:30 102 10/27/16 15:22 98.6 93 18 170/78 99 CBC/BMP: 10/28/16 0842 10/27/16 0508 Lab Results Laboratory Tests Test 10/28/16 08:42 White Blood Count 3.3 TH/MM3 Red Blood Count 3.41 MIL/MM3 Hemoglobin 11.1 GM/DL Hematocrit 31.8 % Mean Corpuscular Volume 93.3 FL Mean Corpuscular Hemoglobin 32.5 PG Mean Corpuscular Hemoglobin 34.8 % Concent Red Cell Distribution Width 14.4 % Platelet Count 164 TH/MM3 Mean Platelet Volume 6.4 FL Physical Exam General General Appearance: Well Developed, Well Nourished, No Acute Distress, Comfortable Eyes Eye Exam: Pupils Equal, Pupils Reactive Ears & Nose Ears & Nose Exam: Nasal Mucosa [place] Throat Throat Exam: Oral Mucosa [place] & Moist Neck Neck Exam: Neck Supple, Trachea Midline Pulmonary Resp Exam: Breath Sounds Equal, No Distress Cardiology CV Exam: Regular, Good Perfusion Gastrointestinal/Abdomen GI Exam: Soft, Non-Tender, Bowel Sounds Present, Non-Distended Musculoskeletal MS Exam: Joints Intact Integumentary Skin Exam: Warm, Dry Extremeties Extremities Exam: Pedal Pulses Palpable Neurologic Neuro Exam: Alert, Awake, Oriented, Speech Clear, Moving All Extremities, No Focal Deficits Psychiatric Psych Exam: Appropriate Responses VTE Prophylaxis VTE Prophylaxis Device: SCDs PUD Prophylasis PUD Prophylaxis: Protonix Assessment/Plan Problem List: (1) Weakness (2) Dysphagia (3) Acromegaly (4) Tonsil cancer (5) Dehydration (6) Malnutrition (7) HTN (hypertension) (8) Memory deficit Assessment/Plan 71-year-old male with 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 Admitted with dysphagia, has been very weak and not been able to take oral intake. Today, patient had a near syncopal episode. Denies any loss of consciousness. feels better, no dizziness, ambulating -Continue with IV fluids, normal saline at 100 hour -Magic mouthwash Morphine as needed for pain Zofran as needed -Appreciate GI input, s/p PEG placement -dietary consult for bolus feeding -ok tostart tube feeding today chloraseptic spray prn Leukopenia -monitor CBC Thrush, poss. 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 Appreciate Oncology input Hypertension, stable Continue home medications Memory deficit -Continue with Efrain SCDs for DVT prophylaxis poss.dc tomorrow if he can tolerate tube feedings D/W RN D/W pt. Problem Qualifiers (1) Dysphagia: Qualified Code: R13.10 - Dysphagia, unspecified type (2) HTN (hypertension): Qualified Code: I10 - Essential hypertension Zahida Rod MD October 28, 2016 13:58
[2016-10-28 16:00] VITALS: BP 139/76; PULSE 72; RESP 20; TEMP 98; O2SAT 97
[2016-10-28] MEDS ORDERED: LORazepam 1 MG TAB PO ONE (19:45)
[2016-10-28 19:54] VITALS: BP 118/72; PULSE 70; RESP 18; TEMP 97; O2SAT 100
[2016-10-28 20:40] VITALS: BP 126/76; PULSE 75; RESP 18; TEMP 97.4; O2SAT 94
[2016-10-28] MEDS: FLUCONAZOLE 100 MG TAB PO SCH (20:42)
[2016-10-29] VITALS (7 sets, daily range): BP systolic 112–135; BP diastolic 65–78; PULSE 74–95; RESP 16–20; TEMP 96.2–99.8; O2SAT 95–98
[2016-10-29] MEDS: SODIUM CHLOR 0.9% 1000 ML INJ 1,000 ML IV SCH ×3 (02:06→21:00)
[2016-10-29] MEDS: MORPHINE SULFATE 4 MG/ML INJ IV PUSH PRN ×6 (02:37→21:02)
[2016-10-29] MEDS: PANTOPRAZOLE SODIUM 40 MG VIAL IV PUSH SCH ×2 (08:57→20:58)
[2016-10-29] MEDS: SODIUM CHLORIDE 0.9% FLUSH 10 ML FLUSH IV FLUSH SCH ×2 (08:58→20:58)
[2016-10-29] MEDS: MEMANTINE HCL 5 MG TAB PO SCH (08:59)
[2016-10-29] MEDS: LOSARTAN 50 MG TAB PO SCH ×2 (08:59→20:58)
[2016-10-29] MEDS: NYSTAT/DIPHENHY/LIDO MOUTHWASH (Adult) 120ML SWISH-SWAL SCH ×4 (09:00→20:58)
--- NOTE | 2016-10-29 11:43 | PD.ONC.PN ---
Subjective Subjective Remarks Afebrile overnight. Pt resting in bed in no distress. He tells me his throat pain is worse today than it has been. He states the morphine is not helping as much as it used to. He is asking to go home. Objective Data Date Time Temp Pulse Resp B/P Pulse Ox O2 Delivery O2 Flow Rate FiO2 10/29/16 07:50 98.3 75 20 120/66 95 10/29/16 04:00 98.1 74 16 120/69 98 10/29/16 03:09 81 10/29/16 00:00 98.1 81 18 135/78 98 10/28/16 20:40 97.4 75 18 126/76 94 10/28/16 16:00 98.0 72 20 139/76 97 10/28/16 14:50 18 10/28/16 12:00 98.0 83 20 117/73 97 Result Diagram: 10/28/16 0842 10/27/16 0508 Culture Results Microbiology Date/Time Procedure Status Source Growth 10/26/16 11:45 Aerobic Blood Culture - Preliminary Resulted Blood Peripheral NO GROWTH IN 3 DAYS 10/26/16 11:45 Anaerobic Blood Culture - Preliminary Resulted Blood Peripheral NO GROWTH IN 3 DAYS 10/26/16 12:05 Urine Culture - Final Complete Urine Catheterized Urine Administered Medications Medications (Trade) Dose Ordered Sig/Anastacio Route PRN Reason Start Time Stop Time Status Last Admin Dose Admin Sodium Chloride (NS 1000 ml Inj) 1,000 ml @ 100 mls/hr Q10H IV 10/26/16 15:00 10/29/16 02:06 Sodium Chloride (NS Flush) 2 ml UNSCH PRN IV FLUSH FLUSH AFTER USING IV ACCESS 10/26/16 14:30 10/27/16 06:18 Sodium Chloride (NS Flush) 2 ml BID IV FLUSH 10/26/16 21:00 10/29/16 08:58 Ondansetron HCl (Zofran Inj) 4 mg Q6H PRN IVP NAUSEA OR VOMITING 10/26/16 15:00 10/27/16 15:55 Morphine Sulfate (Morphine Inj) 4 mg Q3H PRN IV PUSH PAIN SCALE 6 TO 10 10/26/16 14:30 10/29/16 08:59 Multi-Ingredient Mouthwash/Gargle (Magic Mouthwash Adult Liq) 10 ml QID SWISH-SWAL 10/26/16 18:00 10/29/16 09:00 Memantine (Namenda) 5 mg DAILY PO 10/27/16 09:00 10/29/16 08:59 Losartan Potassium (Cozaar) 50 mg BID PO 10/27/16 09:00 10/29/16 08:59 Fluconazole (Diflucan) 100 mg Q24H PO 10/26/16 21:00 10/28/16 20:42 Pantoprazole Sodium (Protonix Inj) 40 mg Q12HR IV PUSH 10/27/16 09:30 10/29/16 08:57 Objective Remarks GENERAL: Middle aged male, sitting up in bed in no distress. SKIN: Warm and dry. HEAD: Normocephalic. MOUTH: Ulcerated lesions to pharynx. EYES: No injection or drainage. NECK: Supple, trachea midline. CARDIOVASCULAR: Regular rate and rhythm. RESPIRATORY: Breath sounds equal bilaterally. No accessory muscle use. GASTROINTESTINAL: Abdomen soft. Peg tube insertion site mildly tender. No bleeding. EXTREMITIES: No edema. No cyanosis. Assessment/Plan Problem List: (1) Malnutrition Status: Acute Plan: 10/29: Tolerating TF. Will need to ensure he has supplies at home prior to discharge. 10/28: start tube feeds --due to radiation pharyngitis and esophagitis --s/p PEG tube placement --sheet sorter consulted: recommends: Jevity 1.5 7 cans/day bolus feedings, schedule below. 360 mls (1+1/2 cans)at 8am, 11am, 5pm, 8pm 240 mls (1 can) at 2pm Water flushes per MD. As po intake improves, pt can bolus 6 cans/day 360 mls (1+1/2 cans) at 8am and 8pm, 240 mls (1 can) at 11am, 2pm, 5pm (2) Nausea & vomiting Status: Acute Plan: -- Improving --likely due to cisplatin chemotherapy --on anti-emetic therapy (3) Dehydration Status: Acute Plan: --on NS @ 100cc/hr (4) Tonsil cancer Status: Chronic Plan: 10/29: XRT complete. Continue prn pain medication. He is still having a difficult time swallowing anything other than liquids at this time. 10/28: continue PRN morphine for pain, may start Oramorph for long acting pain relief once patient can swallow pills. --received last radiation therapy 10/27 --last chemotherapy was a week ago Thursday. Assessment 71y/o male with head and neck cancer. h/o Acromegaly. ADHD. Arthritis. Hypercholesterolemia. Hypertension. Memory loss. Left tonsillar cancer with metastasis to the left neck Attending Statement c/o more throat pain. Tolerating tube feeding well, arrange for home tube feeding prior to d/c home. The exam, history, and the medical decision-making described in the above note were completed with the assistance of the mid-level provider. I reviewed and agree with the findings presented. I attest that I had a [id number] encounter with the patient on the same day, and personally performed and documented my assessment and findings in the medical record. Raquel Gilliland October 29, 2016 11:43 Farideh Arias MD October 29, 2016 21:42
--- NOTE | 2016-10-29 13:54 | HHI.PR ---
Subjective Interval History awake alert and oriented tolerating tube feeds complaining of pain in throat wanting to go home no family at bed side Vitals/Results Intake & Output 10/28/16 10/28/16 10/29/16 15:00 23:00 07:00 Intake Total 480 ml 480 ml 2270 ml Balance 480 ml 480 ml 2270 ml Intake Oral 480 ml 480 ml 240 ml IV Total 2030 ml # Voids 4 2 1 Vital Signs Vital Signs Date Time Temp Pulse Resp B/P Pulse Ox O2 Delivery O2 Flow Rate FiO2 10/29/16 11:50 96.2 85 20 119/65 98 10/29/16 09:04 18 10/29/16 07:50 98.3 75 20 120/66 95 10/29/16 04:00 98.1 74 16 120/69 98 10/29/16 03:09 81 10/29/16 00:00 98.1 81 18 135/78 98 10/28/16 20:40 97.4 75 18 126/76 94 10/28/16 16:00 98.0 72 20 139/76 97 CBC/BMP: 10/28/16 0842 10/27/16 0508 Physical Exam General General Appearance: Well Developed, Well Nourished, No Acute Distress, Comfortable Eyes Eye Exam: Pupils Equal, Pupils Reactive Ears & Nose Ears & Nose Exam: Nasal Mucosa [place] Throat Throat Exam: Oral Mucosa [place] & Moist Neck Neck Exam: Neck Supple, Trachea Midline Pulmonary Resp Exam: Breath Sounds Equal, No Distress Cardiology CV Exam: Regular, Good Perfusion Gastrointestinal/Abdomen GI Exam: Soft, Non-Tender, Bowel Sounds Present, Non-Distended Musculoskeletal MS Exam: Joints Intact Integumentary Skin Exam: Warm, Dry Extremeties Extremities Exam: Pedal Pulses Palpable Neurologic Neuro Exam: Alert, Awake, Oriented, Speech Clear, Moving All Extremities, No Focal Deficits Psychiatric Psych Exam: Appropriate Responses VTE Prophylaxis VTE Prophylaxis Device: SCDs PUD Prophylasis PUD Prophylaxis: Protonix Assessment/Plan Problem List: (1) Weakness (2) Dysphagia (3) Acromegaly (4) Tonsil cancer (5) Dehydration (6) Malnutrition (7) HTN (hypertension) (8) Memory deficit Assessment/Plan 71-year-old male with 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 Admitted with dysphagia, has been very weak and not been able to take oral intake, near syncopal episode. Denies any loss of consciousness. d/c i/v fluids -Magic mouthwash Morphine as needed for pain Zofran as needed -Appreciate GI input, s/p PEG placement -tolerating tube feeding switch to bolus feedings chloraseptic spray prn Leukopenia -monitor CBC Thrush, poss. 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 Appreciate Oncology input Hypertension, stable Continue home medications Memory deficit -Continue with Namendjordy SCDs for DVT prophylaxis d/c to home with [facility] D/W RN D/W pt. Problem Qualifiers (1) Dysphagia: Qualified Code: R13.10 - Dysphagia, unspecified type (2) HTN (hypertension): Qualified Code: I10 - Essential hypertension Zahida Rod MD October 29, 2016 13:54
[2016-10-29] MEDS ORDERED: OXYC1CON3 PO (14:00)
[2016-10-29] MEDS ORDERED: NAME5TAB2 PO (14:00)
[2016-10-29] MEDS ORDERED: FLUC100T2 PO (14:00)
--- NOTE | 2016-10-29 14:01 | HHI.FF ---
Face to Face Verification Diagnosis: (1) Malnutrition (2) Tonsil cancer Home Health Nursing Order: Medical education Instructions: bolus tube feeding I have seen patient Jonah Reyna on 10/29/16. My clinical findings support the need for the requested home health care services because: Deconditioned w/ increased weakness I certify that my clinical findings support that this patient is homebound because: Unsafe to leave home unassisted Zahida Rod MD October 29, 2016 14:01
[2016-10-29] MEDS: FLUCONAZOLE 100 MG TAB PO SCH (20:58)
[2016-10-29] MEDS ORDERED: LORazepam 1 MG TAB PO SCH (21:00)
[2016-10-30] VITALS: BP 145/74; PULSE 88; RESP 18; TEMP 98.8; O2SAT 97
[2016-10-30] MEDS: MORPHINE SULFATE 4 MG/ML INJ IV PUSH PRN ×4 (00:01→11:34)
[2016-10-30 04:00] VITALS: BP 123/73; PULSE 68; RESP 16; TEMP 99.3; O2SAT 97
[2016-10-30] MEDS: SODIUM CHLOR 0.9% 1000 ML INJ 1,000 ML IV SCH (07:27)
[2016-10-30 07:50] VITALS: BP 139/75; PULSE 75; RESP 20; TEMP 99.1; O2SAT 99
[2016-10-30] MEDS: PANTOPRAZOLE SODIUM 40 MG VIAL IV PUSH SCH (08:04)
[2016-10-30] MEDS: LOSARTAN 50 MG TAB PO SCH (08:05)
[2016-10-30] MEDS: NYSTAT/DIPHENHY/LIDO MOUTHWASH (Adult) 120ML SWISH-SWAL SCH ×2 (08:05→13:51)
[2016-10-30] MEDS: MEMANTINE HCL 5 MG TAB PO SCH (08:05)
[2016-10-30] MEDS: SODIUM CHLORIDE 0.9% FLUSH 10 ML FLUSH IV FLUSH SCH (08:10)
[2016-10-30 08:50] VITALS: PULSE 94
[2016-10-30 11:22] VITALS: BP 117/69; PULSE 87; RESP 20; TEMP 98.6; O2SAT 94
--- NOTE | 2016-10-30 11:53 | PD.ONC.PN ---
Subjective Subjective Remarks Pt seen and examined at 8:00 this am. Tmax 99.8 overnight. Throat pain still the same. Learning to give himself bolus TF. Objective Data Date Time Temp Pulse Resp B/P Pulse Ox O2 Delivery O2 Flow Rate FiO2 10/30/16 11:22 98.6 87 20 117/69 94 10/30/16 07:50 99.1 75 20 139/75 99 10/30/16 04:00 99.3 68 16 123/73 97 10/30/16 00:00 98.8 88 18 145/74 97 10/29/16 20:00 99.8 78 16 112/69 97 10/29/16 20:00 95 10/29/16 18:12 18 10/29/16 15:50 99.1 87 20 117/76 98 10/29/16 11:50 96.2 85 20 119/65 98 Result Diagram: 10/28/16 0842 10/27/16 0508 Administered Medications Medications (Trade) Dose Ordered Sig/Anastacio Route PRN Reason Start Time Stop Time Status Last Admin Dose Admin Sodium Chloride (NS 1000 ml Inj) 1,000 ml @ 100 mls/hr Q10H IV 10/26/16 15:00 10/30/16 07:27 Sodium Chloride (NS Flush) 2 ml UNSCH PRN IV FLUSH FLUSH AFTER USING IV ACCESS 10/26/16 14:30 10/27/16 06:18 Sodium Chloride (NS Flush) 2 ml BID IV FLUSH 10/26/16 21:00 10/29/16 20:58 Ondansetron HCl (Zofran Inj) 4 mg Q6H PRN IVP NAUSEA OR VOMITING 10/26/16 15:00 10/27/16 15:55 Morphine Sulfate (Morphine Inj) 4 mg Q3H PRN IV PUSH PAIN SCALE 6 TO 10 10/26/16 14:30 10/30/16 11:34 Multi-Ingredient Mouthwash/Gargle (Magic Mouthwash Adult Liq) 10 ml QID SWISH-SWAL 10/26/16 18:00 10/30/16 08:05 Memantine (Namenda) 5 mg DAILY PO 10/27/16 09:00 10/30/16 08:05 Losartan Potassium (Cozaar) 50 mg BID PO 5/22/17 09:00 10/30/16 08:05 Fluconazole (Diflucan) 100 mg Q24H PO 10/26/16 21:00 10/29/16 20:58 Pantoprazole Sodium (Protonix Inj) 40 mg Q12HR IV PUSH 10/27/16 09:30 10/30/16 08:04 Phenol (Chloraseptic [place]) 2 spray Q2H PRN OROPHARYNG pain 10/28/16 13:00 10/30/16 00:04 Lorazepam (Ativan) 1 mg HS PO 10/29/16 21:00 10/29/16 20:58 Objective Remarks GENERAL: Middle aged male, sitting up in bed in no distress, giving himself a bolus TF. SKIN: Warm and dry. HEAD: Normocephalic. EYES: No injection or drainage. NECK: Supple, trachea midline. CARDIOVASCULAR: Regular rate and rhythm. RESPIRATORY: Breath sounds equal bilaterally. No accessory muscle use. GASTROINTESTINAL: Abdomen soft. Peg tube in place. No bleeding. EXTREMITIES: No edema. No cyanosis. Assessment/Plan Problem List: (1) Malnutrition Status: Acute Plan: 10/30: Pt has TF supplies. He will be giving himself bolus feedings for discharge. Will add on long acting narcotic for better pain control. 10/29: Tolerating TF. Will need to ensure he has supplies at home prior to discharge. 10/28: start tube feeds --due to radiation pharyngitis and esophagitis --s/p PEG tube placement --rapid extractor operator consulted: recommends: Jevity 1.5 7 cans/day bolus feedings, schedule below. 360 mls (1+1/2 cans)at 8am, 11am, 5pm, 8pm 240 mls (1 can) at 2pm Water flushes per MD. As po intake improves, pt can bolus 6 cans/day 360 mls (1+1/2 cans) at 8am and 8pm, 240 mls (1 can) at 11am, 2pm, 5pm (2) Nausea & vomiting Status: Resolved Plan: --Improved (3) Dehydration Status: Acute Plan: --on NS @ 100cc/hr (4) Tonsil cancer Status: Chronic Plan: 10/29: XRT complete. Continue prn pain medication. He is still having a difficult time swallowing anything other than liquids at this time. 10/28: continue PRN morphine for pain, may start Oramorph for long acting pain relief once patient can swallow pills. --received last radiation therapy 10/27 --last chemotherapy was a week ago Thursday. Assessment 71y/o male with head and neck cancer. h/o Acromegaly. ADHD. Arthritis. Hypercholesterolemia. Hypertension. Memory loss. Left tonsillar cancer with metastasis to the left neck Attending Statement still has throat pain. Tolerating TF ok to d/c FU as outpt Raquel Gilliland October 30, 2016 11:52 Farideh Arias MD October 30, 2016 23:20
--- NOTE | 2016-10-30 13:01 | HHI.PR ---
Subjective Interval History awake alert and oriented Vitals/Results Intake & Output 10/29/16 10/29/16 10/30/16 15:00 23:00 07:00 Intake Total 600 ml 480 ml 240 ml Balance 600 ml 480 ml 240 ml Intake Oral 600 ml 480 ml 240 ml # Voids 1 3 2 # Bowel Movements 0 Vital Signs Vital Signs Date Time Temp Pulse Resp B/P Pulse Ox O2 Delivery O2 Flow Rate FiO2 10/30/16 11:22 98.6 87 20 117/69 94 10/30/16 07:50 99.1 75 20 139/75 99 10/30/16 04:00 99.3 68 16 123/73 97 10/30/16 00:00 98.8 88 18 145/74 97 10/29/16 20:00 99.8 78 16 112/69 97 10/29/16 20:00 95 10/29/16 18:12 18 10/29/16 15:50 99.1 87 20 117/76 98 CBC/BMP: 10/28/16 0842 10/27/16 0508 Physical Exam General General Appearance: Well Developed, Well Nourished, No Acute Distress, Comfortable Eyes Eye Exam: Pupils Equal, Pupils Reactive Ears & Nose Ears & Nose Exam: Nasal Mucosa [place] Throat Throat Exam: Oral Mucosa [place] & Moist Neck Neck Exam: Neck Supple, Trachea Midline Pulmonary Resp Exam: Breath Sounds Equal, No Distress Cardiology CV Exam: Regular, Good Perfusion Gastrointestinal/Abdomen GI Exam: Soft, Non-Tender, Bowel Sounds Present, Non-Distended Musculoskeletal MS Exam: Joints Intact Integumentary Skin Exam: Warm, Dry Extremeties Extremities Exam: Pedal Pulses Palpable Neurologic Neuro Exam: Alert, Awake, Oriented, Speech Clear, Moving All Extremities, No Focal Deficits Psychiatric Psych Exam: Appropriate Responses VTE Prophylaxis VTE Prophylaxis Device: SCDs PUD Prophylasis PUD Prophylaxis: Protonix Assessment/Plan Problem List: (1) Weakness (2) Dysphagia (3) Acromegaly (4) Tonsil cancer (5) Dehydration (6) Malnutrition (7) HTN (hypertension) (8) Memory deficit Assessment/Plan 71-year-old male with 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 Admitted with dysphagia, has been very weak and not been able to take oral intake, near syncopal episode. Denies any loss of consciousness. d/c i/v fluids -Magic mouthwash Morphine as needed for pain Zofran as needed -Appreciate GI input, s/p PEG placement -tolerating tube feeding switch to bolus feedings chloraseptic spray prn Leukopenia -monitor CBC Thrush, poss. 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 Appreciate Oncology input Hypertension, stable Continue home medications Memory deficit -Continue with Efrain SCDs for DVT prophylaxis d/c to home with [facility] D/W RN D/W pt. Problem Qualifiers (1) Dysphagia: Qualified Code: R13.10 - Dysphagia, unspecified type (2) HTN (hypertension): Qualified Code: I10 - Essential hypertension Zahida Rod MD October 30, 2016 13:00
--- NOTE | 2016-10-30 14:10 | HHI.PR ---
Subjective Interval History awake alert and oriented still with pain on swallowing discharge held yesterday sec to patient not switched over to bolus feeding tolerating bolus feeding no other complaints no family at bed side Vitals/Results Intake & Output 10/29/16 10/29/16 10/30/16 15:00 23:00 07:00 Intake Total 600 ml 480 ml 240 ml Balance 600 ml 480 ml 240 ml Intake Oral 600 ml 480 ml 240 ml # Voids 1 3 2 # Bowel Movements 0 Vital Signs Vital Signs Date Time Temp Pulse Resp B/P Pulse Ox O2 Delivery O2 Flow Rate FiO2 10/30/16 11:22 98.6 87 20 117/69 94 10/30/16 07:50 99.1 75 20 139/75 99 10/30/16 04:00 99.3 68 16 123/73 97 10/30/16 00:00 98.8 88 18 145/74 97 10/29/16 20:00 99.8 78 16 112/69 97 10/29/16 20:00 95 10/29/16 18:12 18 10/29/16 15:50 99.1 87 20 117/76 98 CBC/BMP: 10/28/16 0842 10/27/16 0508 Physical Exam General General Appearance: Well Developed, Well Nourished, No Acute Distress, Comfortable Eyes Eye Exam: Pupils Equal, Pupils Reactive Ears & Nose Ears & Nose Exam: Nasal Mucosa [place] Throat Throat Exam: Oral Mucosa [place] & Moist Neck Neck Exam: Neck Supple, Trachea Midline Pulmonary Resp Exam: Breath Sounds Equal, No Distress Cardiology CV Exam: Regular, Good Perfusion Gastrointestinal/Abdomen GI Exam: Soft, Non-Tender, Bowel Sounds Present, Non-Distended Musculoskeletal MS Exam: Joints Intact Integumentary Skin Exam: Warm, Dry Extremeties Extremities Exam: Pedal Pulses Palpable Neurologic Neuro Exam: Alert, Awake, Oriented, Speech Clear, Moving All Extremities, No Focal Deficits Psychiatric Psych Exam: Appropriate Responses VTE Prophylaxis VTE Prophylaxis Device: SCDs PUD Prophylasis PUD Prophylaxis: Protonix Assessment/Plan Problem List: (1) Weakness (2) Dysphagia (3) Acromegaly (4) Tonsil cancer (5) Dehydration (6) Malnutrition (7) HTN (hypertension) (8) Memory deficit Assessment/Plan 71-year-old male with 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 Admitted with dysphagia, has been very weak and not been able to take oral intake, near syncopal episode. Denies any loss of consciousness. -Magic mouthwash Morphine as needed for pain Zofran as needed -Appreciate GI input, s/p PEG placement -tolerating bolus feedings chloraseptic spray prn Leukopenia -monitor CBC Thrush, poss. 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 Appreciate Oncology input Hypertension, stable Continue home medications Memory deficit -Continue with Efrain SCDs for DVT prophylaxis d/c to home with [facility] D/W RN D/W pt. Problem Qualifiers (1) Dysphagia: Qualified Code: R13.10 - Dysphagia, unspecified type (2) HTN (hypertension): Qualified Code: I10 - Essential hypertension Zahida Rod MD October 30, 2016 14:10
[2016-10-30 15:35] VITALS: BP 131/77; PULSE 96; RESP 20; TEMP 99.4; O2SAT 98
[2016-10-30] MEDS: ONDANSETRON HCL 4 MG/2 ML VIAL IVP PRN (16:35)
--- NOTE | 2016-10-31 15:05 | PQ ---
Physician Query Response Document PATIENT: CARMEN MICHEL : 1945 ADMIT DATE: 10/27/2016 11:15 AM DISCH DATE: 10/30/2016 7:09 PM RESPONDING PROVIDER #: kenneth QUERY TEXT: Malnutrition Severity Malnutrition is documented in the Medical Record. Please specify the severity Such as: -- Mild ? first degree -- Moderate ? second degree -- Severe ? third degree -- Severe malnutrition with marasmus -- Other, please specify PLEASE CALL [facility] @ [phone] FOR ASSISTANCE The patient's Clinical Indicators include: PER ONCOLOGY PROGRESS NOTE(2) Malnutrition Status: Acute Plan: --due to radiation pharyngitis and esophagitis --s/p PEG tube placement --rn occupational consulted: recommends: Jevity 1.5 7 cans/day bolus feedings BMI=27.6 TOTAL PROTIEN=7.2 ALBUMIN=3.7 Query created by: Nicky Thurston on 10/28/2016 12:38 PM RESPONSE TEXT: MIld , first degree Electronically signed by: Zahida Rod MD 10/31/2016 3:00 PM
--- NOTE | 2016-11-02 18:56 | HHI.DS ---
Discharge Summary Admission Date October 27, 2016 at 11:15 Discharge Date: October 30, 2016 Admitting Diagnosis dysphagia, malnutrition, dehydration (1) Tonsil cancer (2) Weakness (3) Acromegaly (4) Dysphagia (5) Dehydration (6) Malnutrition (7) HTN (hypertension) (8) Memory deficit Procedures 10/27, S/P EGD with peg placement Imaging Last Impressions Chest X-Ray 10/26/16 1129 Signed Impressions: Service Date/Time: Wednesday, October 26, 2016 11:36 - CONCLUSION: No acute disease. Valentin Beckford MD Hospital Course This a pleasant 71-year-old male recently diagnosed with left tonsillar squamous cell carcinoma, currently undergoing concurrent radiation and weekly cisplatin chemotherapy. Patient states that he finished the chemotherapy last week and he is due to finish his last radiation treatment tomorrow. His oncologist is Dr. Arias and radiation oncology is Dr. Brown. Patient presented to the emergency room with increasing weakness over the last 2 days. Indicated he is not able to eat or drink very much as he has painful swallowing. He's had some nausea and vomiting, no blood. The day he came to the hospital, he was sitting at the toilet and he fell like he passed out, he did not fall to the floor but was leaning against a wall. Denied any diarrhea, indicates he was constipated and his stool was white in color and then he became loose. Urine had been concentrated. No fever, no chills. No chest pain , no shortness of breath. He's had a cough that was nonproductive. Review per oncology note shows that patient was offered a PEG tube however because of cost he declined. Patient was now agreeable to have PEG tube placed. He was prescribed Magic mouthwash but was unable to fill prescription because of cost. He was recently put on Diflucan. Laboratory workup was completed. BMP was unremarkable, mild hyponatremia, sodium 132. Lactic acid 1.5. CBC unremarkable. Urinalysis was positive for some bacteriuria, cultures pending. Chest x-ray did not reveal any acute finding. 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 Admitted with dysphagia, has been very weak and not been able to take oral intake, near syncopal episode. Denies any loss of consciousness. Dysphagia -Magic mouthwash ordered Morphine as needed for pain Zofran as needed -Appreciate GI input, s/p PEG placement -tolerated bolus feedings -chloraseptic spray prn -CM to arrange HHC -pt. improved, no longer weak. Ambulatory, tolerating bolus feeding. Leukopenia -monitored CBC Thrush, poss. esophageal candidiasis -Continued with Diflucan 100 mg by mouth daily -Magic mouthwash ordered Left tonsillar squamous cell carcinoma stage III, status post chemotherapy with cisplatin and radiation. -Appreciate Oncology input Hypertension, stable Continued home medications Memory deficit -Continued with Namenda SCDs for DVT prophylaxis Pt tolerated tube feeding via bolus well CM consulted for dc planning, HHC arranged. Pt. discharged home in stable condition. Pt Condition on Discharge: Stable Discharge Disposition: Disch w/ Home Health Serv Discharge Instructions DIET: Follow Instructions for: On Tube Feeding Activities you can perform: Regular-No Restrictions New Medications: Oxycodone Liq (Oxycodone Liq) 20 Mg/Ml Conc 15 MG PO Q6H Pain Management Days 14 Ref 0 ML Fluconazole (Fluconazole) 100 Mg Tab 100 MG PO Q24H thrush Days 7 TAB Memantine (Namenda) 5 Mg Tab 5 MG PO DAILY ot Days 30 TAB Continued Medications: Losartan (Losartan) 50 Mg Tab 50 MG PO BID PRN Blood Pressure Management #30 Ref 0 TAB Marcy Molina November 02, 2016 18:56
== END 2016-10-30 19:09 | disposition home or self-care (01) | DRG 392 ==
LOC: NEPE 11:03 → NEDA 14:12 → NEPHCDU 16:38 → OBSVTOIN 10-27 11:15 → HOCB 10-27 22:45
PROVIDERS: ADMIT Specialist; ATTEND Specialist
PROC: 0DH63UZ Insertion of Feeding Device into Stomach, Percutaneous Approach (ICD-10-PCS; principal; 2016-10-27 11:20)
PROC: 0DJ08ZZ Inspection of Upper Intestinal Tract, Via Natural or Artificial Opening Endoscopic (ICD-10-PCS; 2016-10-27 11:20)
DX: K20.8 Other esophagitis (principal); E46 Unspecified protein-calorie malnutrition; B37.0 Candidal stomatitis; R13.10 Dysphagia, unspecified; E87.1 Hypo-osmolality and hyponatremia; C09.9 Malignant neoplasm of tonsil, unspecified; E86.0 Dehydration; I10 Essential (primary) hypertension; E78.5 Hyperlipidemia, unspecified; J02.8 Acute pharyngitis due to other specified organisms; F90.9 Attention-deficit hyperactivity disorder, unspecified type; M19.90 Unspecified osteoarthritis, unspecified site; R11.2 Nausea with vomiting, unspecified; T45.1X5A Adverse effect of antineoplastic and immunosuppressive drugs, initial encounter; K44.9 Diaphragmatic hernia without obstruction or gangrene; Y84.2 Radiological procedure and radiotherapy as the cause of abnormal reaction of the patient, or of later complication, without mention of misadventure at the time of the procedure
CPT/HCPCS: 71010; 77336; 77386; 80048; 80053; 81001; 82550; 83605; 83735; 84484; 85025; 85027; 85610; 85730; 87040; 87086; 93005; 96361; 96374; 96375; C9113; J2060; J2270; J2405; J7030